=== PATIENT | female | born 1980 | race Caucasian/White ===

== ENCOUNTER → 2024-03-06 12:37 | Outpatient (REF) | payer BC, SELFPAY | LOC: RAD 12:37 | PROVIDERS: ATTENDING PHYSICIAN Obstetrics & Gynecology; FAMILY PHYSICIAN Family Medicine | DX: N83.209 Unspecified ovarian cyst, unspecified side (principal) | CPT/HCPCS: 76830; 76856 ==

== ENCOUNTER → 2024-07-21 09:43 | Outpatient (REF) | payer BC, SELFPAY | LOC: RAD 09:43 | PROVIDERS: ATTENDING PHYSICIAN Obstetrics & Gynecology; FAMILY PHYSICIAN Family Medicine | DX: N83.209 Unspecified ovarian cyst, unspecified side (principal) | CPT/HCPCS: 76830; 76856 ==

== ENCOUNTER → 2024-08-04 11:11 | Outpatient (REF) | payer BC, SELFPAY | LOC: MRI 3T 11:11 | PROVIDERS: ATTENDING PHYSICIAN Family Medicine | DX: M45.7 Ankylosing spondylitis of lumbosacral region (principal) | CPT/HCPCS: 72148 ==

== ENCOUNTER → 2024-08-21 11:17 | Outpatient (REF) | payer BC, SELFPAY | LOC: WDC 11:17 | PROVIDERS: ATTENDING PHYSICIAN Obstetrics & Gynecology; FAMILY PHYSICIAN Family Medicine | DX: Z12.31 Encounter for screening mammogram for malignant neoplasm of breast (principal) | CPT/HCPCS: 77063; 77067 ==

== ENCOUNTER → 2025-08-24 12:02 | Outpatient (REF) | payer OTHER, SELFPAY | LOC: WDC 12:02 | PROVIDERS: ATTENDING PHYSICIAN Obstetrics & Gynecology; FAMILY PHYSICIAN Family Medicine | DX: Z12.31 Encounter for screening mammogram for malignant neoplasm of breast (principal) | CPT/HCPCS: 77063; 77067 ==